=== PATIENT | female | born 1980 | race Caucasian/White ===

== ENCOUNTER 2023-03-21 08:24 | Outpatient (CLI) | payer OTHER ==
--- NOTE | 2023-03-21 10:21 | MRI Report ---
PROCEDURE: SHOULDER WO - LT INDICATIONS: DISORDER OF JOINT TECHNIQUE: Noncontrast oblique coronal T2 fast spin echo with fat saturation, oblique sagittal T1 spin echo and T2 fast spin echo with fat saturation, axial T1 spin echo and T2 fast spin echo with fat saturation t hrough the shoulder. COMPARISON: None. FINDINGS: Image quality: Excellent. Rotator cuff: There is mild T2 signal elevation diffusely throughout the supraspinatus and infraspina tus tendons at the humeral insertion sites extending the muscular tendinous junctions, indicating ten dinopathy. The supraspinatus, infraspinatus, and subscapularis tendons appear intact throughout. No rotator cuff muscle atrophy on sagittal images. Bones and bursae: No bone marrow contusions or fractures. Mild glenohumeral and acromioclavicular jaime int degeneration. The acromion demonstrates conventional anatomy, without an os acromiale. No patho logic subacromial/subdeltoid bursal fluid is present. Capsule and soft tissues: There is undercutting of the posterior superior labrum. The long head of th e biceps tendon demonstrates normal location and morphology. The rotator interval appears normal, wi thout fibrosis. The coracohumeral ligament is normal in thickness. IMPRESSION: 1. 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 No rotator cuff tear. 2. Acromioclavicular and glenohumeral joint osteoarthritis. 3. Glenoid labral tearing. Reviewed by: Karli Corley MD on 03/21/2023 10:19 AM PST Approved by: Karli Corley MD on 03/21/2023 10:19 AM PST Station ID: [id number]
== END 2023-03-21 08:25 | disposition home or self-care (01) ==
LOC: DI 08:24
PROVIDERS: ATTEND Internal Medicine
DX: M67.814 Other specified disorders of tendon, left shoulder (principal); M19.012 Primary osteoarthritis, left shoulder; S43.432A Superior glenoid labrum lesion of left shoulder, initial encounter

== ENCOUNTER 2023-04-16 15:00 | Emergency (ER) | payer OTHER ==
[2023-04-16 16:13] LABS: B. PARAPERTUSSIS- RESP PCR PAN NOT DETECTED; B. PERTUSSIS- RESP PCR PANEL NOT DETECTED; C. PNEUMONIAE- RESP PCR PANEL NOT DETECTED; CORONAVIRUS 229E-RESP PCR NOT DETECTED; CORONAVIRUS HKU1-RESP PCR NOT DETECTED; CORONAVIRUS NL63-RESP PCR NOT DETECTED; CORONAVIRUS OC43-RESP PCR NOT DETECTED; HUMAN METAPNEUMOVIRUS NOT DETECTED; INFLUENZA A- RESP PCR PANEL NOT DETECTED; INFLUENZA B - RESP PCR PANEL NOT DETECTED; M. PNEUMONIAE- RESP PCR PANEL NOT DETECTED; PARAINFLUENZA VIRUS 1 NOT DETECTED; PARAINFLUENZA VIRUS 2 NOT DETECTED; PARAINFLUENZA VIRUS 3 NOT DETECTED; PARAINFLUENZA VIRUS 4 NOT DETECTED; RHINOVIRUS/ENTEROVIRUS NOT DETECTED; RSV- RESP PCR PANEL NOT DETECTED; SARS-CoV-2 -RESP PCR PANEL NOT DETECTED
--- NOTE | 2023-04-16 16:36 | ED Physician Documentation ---
History of Present Illness - Stated complaint Stated Complaint: BILAT ARMS HOT/RED,COUGH,SORE THROAT - Chief complaint Chief Complaint: General - History obtained from History obtained from: Patient - History of Present Illness Pain level max: 0 Pain level now: 0 - Additonal information Additional information: Patient is a 43-year-old female who states that she had had a cough and nasal congestion for the past several days. She came in stating that her left upper arm has been red and swollen, right upper arm mildly red as well. She did receive a cortisone injection into the left shoulder 2 days ago. She is not having pain with range of motion of the shoulder. No vomiting. Denies any possibility of . Patient is right-handed. Has a mild sore throat as well. No rash. 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 - Past Surgical History Past Surgical History: Yes Ortho: Shoulder arthroplasty - Present Medications Home Medications: Ambulatory Orders Medication Instructions Recorded Confirmed clindamycin HCL [Cleocin HCl] 300 mg PO Q6H #40 cap 04/16/23 - Allergies Allergies/Adverse Reactions: Allergies Allergy/AdvReac Type Severity Reaction Status Date / Time amoxicillin AdvReac Rash Verified 04/16/23 15:17 ampicillin AdvReac Rash Verified 04/16/23 15:17 - Social History Does the pt smoke?: No Smoking Status: Never smoker PD ED PE NORMAL - Vitals Vital signs reviewed: Yes - General General: Alert and oriented X 3, No acute distress - HEENT HEENT: PERRL, Ears normal, Moist mucous membranes, Pharynx benign - Neck Neck: Supple, no meningeal sign, No bony TTP - Cardiac Cardiac: RRR, Strong equal pulses - Respiratory Respiratory: No respiratory distress, Clear bilaterally - Abdomen Abdomen: Soft, Non tender, Non distended - Derm Derm: Warm and dry - Extremities Extremities: Other - Neuro Neuro: Alert and oriented X 3 - Psych Psych: Normal mood, Normal affect - Free text exam Free text exam: There is an area to the left upper arm, mid humerus that is approximately 5 x 7 cm of erythema. There is no induration. There is no drainage. It is not confluent. There is no pain in the joint. Full range of motion without pain. Neurovascular intact. It is fittings tightener this area as well. Mild tenderness. There is a similar area on the other arm, though smaller at approximately 2 x 2 cm. Results - Vitals Vitals: Vital Signs - 24 hr 04/16/23 04/16/23 15:14 16:40 Temperature 36.2 C L Heart Rate 72 68 Respiratory 18 16 Rate Blood Pressure 134/79 H 129/82 H O2 Saturation 97 99 - Labs Labs: Laboratory Tests 04/16/23 15:19 Nasal Adenovirus (PCR) NOT DETECTED Nasal B. parapertussis DNA (PCR) NOT DETECTED Nasal Coronavir 229E PCR NOT DETECTED Nasal Coronavir HKU1 PCR NOT DETECTED Nasal Coronavir NL63 PCR NOT DETECTED Nasal Coronavir OC43 PCR NOT DETECTED Nasal Enterovir/Rhinovir PCR NOT DETECTED Nasal Influenza B PCR NOT DETECTED Nasal Influenza A PCR NOT DETECTED Nasal Parainfluen 1 PCR NOT DETECTED Nasal Parainfluen 2 PCR NOT DETECTED Nasal Parainfluen 3 PCR NOT DETECTED Nasal Parainfluen 4 PCR NOT DETECTED Nasal RSV (PCR) NOT DETECTED Nasal B.pertussis DNA PCR NOT DETECTED Nasal C.pneumoniae (PCR) NOT DETECTED Jonatan Human Metapneumo PCR NOT DETECTED Nasal M.pneumoniae (PCR) NOT DETECTED Nasal SARS-CoV-2 (PCR) NOT DETECTED PD Medical Decision Making - ED course Complexity details: reviewed results, considered differential, d/w patient ED course: Unclear etiology of the erythema and warmth to the left upper arm, possibly related to the recent steroid injection into the glenohumeral joint, does not appear to be a septic joint at this time. Is not having shoulder pain. Possible early cellulitis? No confluence however. No induration or fluctuance. Also unclear why the other arm would have a similar area. Remainder of the arm is normal. We will place her on antibiotics for home and follow-up closely with her doctor for further care. Patient counseled regarding signs and symptoms for which I believe and urgent re-evaluation would be necessary. Patient with good understanding of and agreement to plan and is comfortable going home at this time This document was made in part using voice recognition software. While efforts are made to proofread this document, sound alike and grammatical errors may occur. Respiratory panel is negative Departure - Departure Disposition: 01 Home, Self Care Clinical Impression: Viral URI Cellulitis Qualifiers: Site of cellulitis: unspecified site Qualified Code(s): L03.90 - Cellulitis, unspecified Condition: Good Instructions: ED Infec Skin Cellulitis Follow-Up: DAKOTA BASS MD [Primary Care Provider] - Within 1 week Prescriptions: clindamycin HCL [Cleocin HCl] 300 mg PO Q6H #40 cap Comments: Your prescription was [facility] to [facility] in [place]. Please follow-up with your doctor for further care. Please take all antibiotics until gone even if you are feeling better. Please return if you worsen. Forms: PCP List Discharge Date/Time: 04/16/23 16:41
[2023-04-16 16:47] VITALS: BP 129/82; O2SAT 99
== END 2023-04-16 16:41 | disposition home or self-care (01) ==
LOC: ED 15:00
DX: J06.9 Acute upper respiratory infection, unspecified (principal); L03.90 Cellulitis, unspecified; Z11.52 Encounter for screening for COVID-19
CPT/HCPCS: 87633; 99283

== ENCOUNTER 2023-04-30 09:18 | Emergency (ER) | payer OTHER ==
[2023-04-30 09:42] VITALS: BP 118/71; O2SAT 98
[2023-04-30 10:38] LABS: B. PARAPERTUSSIS- RESP PCR PAN NOT DETECTED; B. PERTUSSIS- RESP PCR PANEL NOT DETECTED; C. PNEUMONIAE- RESP PCR PANEL NOT DETECTED; CORONAVIRUS 229E-RESP PCR NOT DETECTED; CORONAVIRUS HKU1-RESP PCR NOT DETECTED; CORONAVIRUS NL63-RESP PCR NOT DETECTED; CORONAVIRUS OC43-RESP PCR NOT DETECTED; HUMAN METAPNEUMOVIRUS NOT DETECTED; INFLUENZA A- RESP PCR PANEL NOT DETECTED; INFLUENZA B - RESP PCR PANEL NOT DETECTED; M. PNEUMONIAE- RESP PCR PANEL NOT DETECTED; PARAINFLUENZA VIRUS 1 NOT DETECTED; PARAINFLUENZA VIRUS 2 NOT DETECTED; PARAINFLUENZA VIRUS 3 NOT DETECTED; PARAINFLUENZA VIRUS 4 NOT DETECTED; RHINOVIRUS/ENTEROVIRUS NOT DETECTED; RSV- RESP PCR PANEL NOT DETECTED
[2023-04-30 10:40] LABS: SARS-CoV-2 -RESP PCR PANEL DETECTED
--- NOTE | 2023-04-30 12:12 | ED Physician Documentation ---
History of Present Illness - Stated complaint Stated Complaint: SOA,COUGH,DIZZINESS - Chief complaint Chief Complaint: Resp - Additonal information Additional information: Patient 43-year-old female presenting to the emergency department with cough, congestion, body ache. Reports has been having intermittent episodes of illness x 3 weeks but yesterday noted that her symptoms were getting more severe. No known sick contacts. Reports fully immunized against the SARS COVID virus. No chest pain, shortness of breath, nausea, vomiting, diarrhea, constipation. Review of Systems Constitutional: reports: Myalgias. denies: Fever Nose: reports: Congestion Respiratory: reports: Cough PD PAST MEDICAL HISTORY - Past Medical History Past Medical History: No - Past Surgical History Past Surgical History: Yes Ortho: Shoulder arthroplasty - Present Medications Home Medications: Ambulatory Orders Medication Instructions Recorded Confirmed clindamycin HCL [Cleocin HCl] 300 mg PO Q6H #40 cap 04/16/23 - Allergies Allergies/Adverse Reactions: Allergies Allergy/AdvReac Type Severity Reaction Status Date / Time amoxicillin AdvReac Rash Verified 04/16/23 15:17 ampicillin AdvReac Rash Verified 04/16/23 15:17 - Social History Does the pt smoke?: No Smoking Status: Never smoker PD ED PE NORMAL - Vitals Vital signs reviewed: Yes - General General: Alert and oriented X 3, No acute distress, Well developed/nourished - HEENT HEENT: Atraumatic, PERRL, EOMI, Ears normal, Moist mucous membranes, Pharynx benign - Neck Neck: Supple, no meningeal sign, No bony TTP, No adenopathy, Thyroid normal, No JVD - Cardiac Cardiac: RRR, No gallop, Strong equal pulses - Respiratory Respiratory: No respiratory distress - Abdomen Abdomen: Normal bowel sounds - Rectal Rectal: Deferred - Derm Derm: Normal color - Neuro Neuro: Alert and oriented X 3, scheduler 2-12 intact, No motor deficit, Normal speech Results - Vitals Vitals: Vital Signs - 24 hr 04/30/23 09:33 Temperature 36.9 C Heart Rate 110 H Respiratory 20 Rate Blood Pressure 118/71 O2 Saturation 98 Oxygen O2 Source Room air - Labs Labs: Laboratory Tests 04/30/23 09:39 Nasal Adenovirus (PCR) NOT DETECTED Nasal B. parapertussis DNA (PCR) NOT DETECTED Nasal Coronavir 229E PCR NOT DETECTED Nasal Coronavir HKU1 PCR NOT DETECTED Nasal Coronavir NL63 PCR NOT DETECTED Nasal Coronavir OC43 PCR NOT DETECTED Nasal Enterovir/Rhinovir PCR NOT DETECTED Nasal Influenza B PCR NOT DETECTED Nasal Influenza A PCR NOT DETECTED Nasal Parainfluen 1 PCR NOT DETECTED Nasal Parainfluen 2 PCR NOT DETECTED Nasal Parainfluen 3 PCR NOT DETECTED Nasal Parainfluen 4 PCR NOT DETECTED Nasal RSV (PCR) NOT DETECTED Nasal B.pertussis DNA PCR NOT DETECTED Nasal C.pneumoniae (PCR) NOT DETECTED Jonatan Human Metapneumo PCR NOT DETECTED Nasal M.pneumoniae (PCR) NOT DETECTED Nasal SARS-CoV-2 (PCR) DETECTED A PD Medical Decision Making - ED course Complexity details: reviewed results, d/w patient ED course: Patient 43-year-old female presenting to the emergency department with cough, congestion and upper respiratory tract style symptoms. Afebrile, hemodynamic stable arrival to the emergency department. No respiratory distress and clear aeration in all lung díaz. HEENT exam benign. Respiratory viral panel positive for SARS COVID virus. Discussed nature of SARS COVID virus. Discussed best evidence concerning the use of Paxlovid which patient declines. Will discharge for follow-up with primary care. Clear return precautions given. Departure - Departure Disposition: 01 Home, Self Care Clinical Impression: COVID-19 Instructions: ED Viral Syndrome Comments: Thank you for allowing us to care for you today at [facility]. Today in the emergency department you tested positive for the SARS COVID-19 virus. Please quarantine per current CDC guidelines. Please drink plenty fluids and get plenty of rest. [id number] medications can be helpful in managing symptoms such as [id number] Tylenol, ibuprofen, Mucinex. Please make a follow-up appoint with your primary care doctor. If it anytime you develop new or worsening symptoms such as chest pain, respiratory distress please return to the emergency department.
== END 2023-04-30 12:19 | disposition home or self-care (01) ==
LOC: ED 09:18
DX: U07.1 COVID-19 (principal)
CPT/HCPCS: 87633; 99282; 99283